=== PATIENT | female | born 1975 | race Caucasian/White ===

== ENCOUNTER → 2020-04-24 13:11 | Outpatient (CLI) | payer BC, SELFPAY ==
--- NOTE | ~2020-04-24 | MM_ITS ---
EXAMINATION: MM scrn lu implant BI w arielle HISTORY: Screening mammogram TECHNIQUE: Craniocaudal and mediolateral oblique 3-D tomosynthesis images with implant displacement a nd synthetic 2-D images were generated. Craniocaudal and mediolateral oblique views of the breasts wi thout implant displacement were obtained using full field digital mammography. CAD analysis was submi tted and interpreted. COMPARISON: 11/28/2017 bilateral diagnostic implant mammogram and complete right breast ultrasound 05/27/2015, 05/10/2014 bilateral implant digital screening mammogram examinations BREAST PARENCHYMAL COMPOSITION: The breasts are heterogeneously dense, which may obscure small masses . FINDINGS: Status post bilateral augmentation mammoplasty. There is no evidence of suspicious mass, ca lcification, or architectural distortion to suggest malignancy in either breast. There has been no queen spicious interval change. IMPRESSION: 1. No mammographic evidence of malignancy. 2. Recommend routine screening mammography in one year. BI-RADS Category 1: Negative Reviewed, dictated and finalized at location A.
== END ==
PROVIDERS: Referring Provider Nurse Practitioner Family; Visit Provider Obstetrics & Gynecology Gynecology
DX: Z12.31 Encounter for screening mammogram for malignant neoplasm of breast (principal)
CPT/HCPCS: 77063; 77067

== ENCOUNTER → 2020-11-17 12:08 | Outpatient (CLI) | payer BC, SELFPAY ==
--- NOTE | ~2020-11-17 | US_ITS ---
EXAMINATION: US transvaginal DATE: 11/17/2020 12:32 INDICATION: Right lower quadrant pain TECHNIQUE: Multiple endovaginal sonographic images of the pelvis were obtained. COMPARISON: 08/27/2019 FINDINGS: The uterus measures 8.7 x 4.8 x 4.9 cm. The endometrial complex measures 10 mm. The right o vary measures 2.1 x 1.7 x 1.7 cm. The left ovary measures 2.6 x 0.9 x 1.4 cm. There is normal vascula r flow in the ovaries. There is no free fluid in the pelvis. IMPRESSION: 1. No sonographic correlate for the patient's symptoms. Reviewed, dictated and finalized at location B.
== END ==
PROVIDERS: Visit Provider Nurse Practitioner
DX: R10.2 Pelvic and perineal pain (principal)
CPT/HCPCS: 76830

== ENCOUNTER → 2021-04-28 03:35 | Outpatient (CLI) | payer BC, SELFPAY ==
[2021-04-28 18:18] LABS: SARS-CoV-2 RNA PCR Negative
== END ==
PROVIDERS: Visit Provider Internal Medicine Gastroenterology
DX: Z01.812 Encounter for preprocedural laboratory examination (principal); Z20.822 Contact with and (suspected) exposure to COVID-19
CPT/HCPCS: C9803; U0003; U0005

== ENCOUNTER 2021-05-01 03:09 | Day surgery (SDC) | payer BC, SELFPAY ==
[2021-04-21 09:46] VITALS: BMI 21.2
[2021-05-01 11:45] VITALS: BP 120/74; PULSE 70; RESP 18; TEMP 35.8; O2SAT 100; BMI 20.5
[2021-05-01] MEDS: LACTATED RINGERS 1,000 ML 150 ML IV CONT (12:05)
--- NOTE | 2021-05-01 12:22 | P.PNAN_ITS ---
Anes - Initial Pre Proc Eval Procedure: Operation Date: 05/01/21 12:30 Proposed Procedures p Colonoscopy - Yariel Bryan MD Date/Time: 05/01/21 12:22 Surgeon: Yariel Bryan MD Pre Op Diagnosis: anemia Patient Data Age: 45 Gender: F Height: 1.65 m Weight: 56 kg Last Vital Signs Temp 96.4 F L 05/01/21 11:45 Pulse 70 05/01/21 11:45 Resp 18 05/01/21 11:45 BP 120/74 05/01/21 11:45 Pulse Ox 100 05/01/21 11:45 Allergies Allergy/AdvReac Type Severity Reaction Status Date / Time No Known Allergies Allergy Unverified 04/21/21 09:51 Patient hx anesthesia problems: none Family hx anesthesia problems: none Results Review: All pre-operative results and documents have been reviewed as part of the pre-operative evaluation. 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 Surgical History Surgical History (System 11/08/19 @ 13:37 by Klarissa Grier) No pertinent past surgical history Family History Family History (System 11/08/19 @ 13:37 by Klarissa Grier) Mother Family history of arthritis Social History Social History (System 11/08/19 @ 13:37 by Klarissa Grier) Smoking status: Never smoker Alcohol intake: current Drinks per week: 2 Alcohol use details: occasional Substance use: never Substance use type: does not use Living arrangements: with family Gender identity (if verbalized by the patient): Female Spiritual care concerns: No Anes - Eval Final PreProcedure Day of Procedure 05/01/21 12:22 Patient weight: normal Heart: regular rate and rhythm Lungs: clear to auscultation Airway: Mallampati scale class II Neurological: alert and oriented Last oral intake: >/= 8 hours ASA classification: II Emergent: no Anesthetic plan: proceed Anesthesia type and monitoring: general GIVS and standard monitoring Results Review: All pre-operative results and documents have been reviewed as part of the pre-operative evaluation. Informed Consent: The patient's anesthetic plan and its attendant risks and benefits were discussed with the patient/family/POA. Questions were solicited and answers provided to the satisfaction of the patient/family/POA.
--- NOTE | 2021-05-01 12:27 | PM.HPGS ---
History of Present Illness History of Present Illness Consent: Risks, benefits, and alternatives have been discussed and questions answered. Patient agrees to proceed with procedure. Chief complaint: anemia Narrative: Anjelica Anaya is a 45 year old female with anemia, hb 10 but no overt gib, never had colonoscopy. She also has heavy periods Review of Systems Constitutional: Constitutional: Denies headache(s) and Denies weakness Eyes: Eyes: Denies blurry vision ENT: Reports Normal hearing present, Denies headache(s) and Denies neck pain Cardiovascular: Cardiovascular: Denies chest pain and Denies dyspnea Respiratory: Respiratory: Denies dyspnea Gastrointestinal: Gastrointestinal: Reports no additional gastrointestinal complaints Genitourinary: Genitourinary: Denies dysuria Musculoskeletal: Musculoskeletal: Denies neck pain Integumentary/Breasts: Skin/Breast: Denies dry skin Neurologic: Reports Normal hearing present, Denies headache(s) and Denies weakness Psychiatric: Psychiatric: Denies anxiety Endocrine: Endocrine: Denies change in body appearance Hematologic/Lymphatic: Hematologic/Lymphatic: Denies easy bleeding Allergic/Immunologic: Allergic/Immunologic: Denies urticaria PMFSH Past Medical History Medical History (Updated 05/01/21 @ 12:28 by Yariel Bryan MD) Anemia Colon cancer screening 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 Surgical History Surgical History (System 11/08/19 @ 13:37 by Klarissa Grier) No pertinent past surgical history Family History Family History (System 11/08/19 @ 13:37 by Klarissa Grier) Mother Family history of arthritis Social History Social History (System 11/08/19 @ 13:37 by Klarissa Grier) Smoking status: Never smoker Alcohol intake: current Drinks per week: 2 Alcohol use details: occasional Substance use: never Substance use type: does not use Living arrangements: with family Gender identity (if verbalized by the patient): Female Spiritual care concerns: No Meds Home Medications and Allergies Allergies Allergy/AdvReac Type Severity Reaction Status Date / Time No Known Allergies Allergy Unverified 04/21/21 09:51 Vital Signs Vital Signs - 24 hr 05/01/21 11:45 Temperature 96.4 F L Pulse Rate 70 Respiratory Rate 18 Blood Pressure 120/74 Pulse Oximetry 100 Exam Const: General: comfortable and no acute distress HENMT: General nose exam: Normal nares present Eyes: General: appearance normal, both eyes and all related structures Neck: Neck: no JVD Resp: Auscultation: clear to auscultation bilaterally Cardio: Rate: regular rate Rhythm: regular rhythm GI: Inspection: non-distended GI Palp: Yes Soft to palpation Skin: General skin exam: normal color Neuro: General: gait normal Speech: normal speech Extrem: General: normal to inspection Psych: Mental Status: mental status grossly normal Assessment and Plan Assessment and plan (1) Anemia: Code(s): D64.9 - Anemia, unspecified Status: Acute (2) Colon cancer screening: Code(s): Z12.11 - Encounter for screening for malignant neoplasm of colon Status: Acute Assessment and Plan: colonoscopy
[2021-05-01 12:54] VITALS: BP 108/69; PULSE 67; RESP 16; O2SAT 100
[2021-05-01 13:04] VITALS: BP 93/56; PULSE 70; RESP 16; O2SAT 95
[2021-05-01 13:14] VITALS: BP 104/71; PULSE 61; RESP 16; O2SAT 95
== END 2021-05-01 13:50 | disposition home or self-care (01) ==
PROVIDERS: PCP Internal Medicine; Visit Provider Internal Medicine Gastroenterology
PROC: 0DJD8ZZ Inspection of Lower Intestinal Tract, Via Natural or Artificial Opening Endoscopic (ICD-10-PCS; CPT 45378; principal; 2021-05-01 12:30)
DX: Z12.11 Encounter for screening for malignant neoplasm of colon (principal); D64.9 Anemia, unspecified; G51.0 Bell's palsy; K64.8 Other hemorrhoids
CPT/HCPCS: 45378; C9803; J2704; J7120; U0003; U0005

== ENCOUNTER 2022-02-02 07:08 | Outpatient (CLI) | payer BC, SELFPAY ==
--- NOTE | ~2022-02-02 | MM_ITS ---
EXAMINATION: MM scrn lu implant BI w arielle HISTORY: Screening mammogram TECHNIQUE: Craniocaudal and mediolateral oblique 3-D tomosynthesis images with implant displacement a nd synthetic 2-D images were generated. Craniocaudal and mediolateral oblique views of the breasts wi thout implant displacement were obtained using full field digital mammography. CAD analysis was submi tted and interpreted. COMPARISON: Comparison to multiple prior studies sequentially, with oldest reviewed study dated 03/30. BREAST PARENCHYMAL COMPOSITION: The breasts are extremely dense, which lowers the sensitivity of mamm ography FINDINGS: There are bilateral subpectoral silicone implants. There are focal asymmetries in the upper inner quadrant of the left breast on implant displaced views, not definitely seen on prior studies. The right breast is stable without evidence for malignancy. IMPRESSION: 1. Left breast asymmetries. 2. Additional mammographic views and possible breast ultrasound are recommended. BI-RADS Category 0: Incomplete: Needs additional imaging evaluation. Reviewed, dictated and finalized at location A. IMPRESSION: 1. Left breast asymmetries. 2. Additional mammographic views and possible breast ultrasound are recommended . BI-RADS Category 0: Incomplete: Needs additional imaging evaluation.
== END 2022-02-02 07:09 | disposition home or self-care (01) ==
LOC: ANHIMG 07:10
PROVIDERS: PCP Internal Medicine; Visit Provider Nurse Practitioner
DX: Z12.31 Encounter for screening mammogram for malignant neoplasm of breast (principal); R92.8 Other abnormal and inconclusive findings on diagnostic imaging of breast
CPT/HCPCS: 77063; 77067

== ENCOUNTER → 2022-02-05 10:05 | Outpatient (CLI) | payer BC, SELFPAY ==
--- NOTE | ~2022-02-05 | XR_ITS ---
XR shoulder RT min 2V DATE: 02/05/2022 10:20 INDICATION: Right shoulder pain. No injury. TECHNIQUE: 4 views COMPARISON: None FINDINGS: There is moderately prominent right glenohumeral osteoarthritis including moderately promin ent spurring of the right humeral head. Normal alignment at the acromioclavicular and glenohumeral anamika ints. No fracture or dislocation, periosteal reaction or bone destruction. IMPRESSION: Moderate right glenohumeral osteoarthritis Reviewed, dictated and finalized at location A.
== END ==
PROVIDERS: PCP Family Medicine; Visit Provider Family Medicine
DX: M25.511 Pain in right shoulder (principal); M19.011 Primary osteoarthritis, right shoulder
CPT/HCPCS: 73030

== ENCOUNTER 2022-02-12 11:43 | Outpatient (CLI) | payer BC, SELFPAY ==
--- NOTE | ~2022-02-12 | MMUS_ITS ---
EXAMINATION: MM diag lu implant LT w arielle, US breast LT complete HISTORY: Follow-up left breast asymmetries TECHNIQUE: Additional 3-D tomosynthesis images of the left breast were performed and synthetic 2-D im ages were generated. CAD analysis was submitted and interpreted. High resolution complete left breast ultrasound was performed. COMPARISON: Comparison to multiple prior studies sequentially, with oldest reviewed study dated 03/30. BREAST PARENCHYMAL COMPOSITION: The breasts are heterogenously dense, which may obscure small masses. FINDINGS: MAMMOGRAPHIC FINDINGS: There are no suspicious discrete masses, calcifications or cyst architectural distortion in the left breast. Focal asymmetries are less dense with spot compression views, most likely superimposed fibrog landular content. ULTRASOUND: Limited left breast ultrasound: At 1:00, 9 cm from the nipple there is a 9 mm cyst. Left breast impla nt noted. No suspicious masses to suggest malignancy. There is normal. 5 mm lymph node in the axilla. IMPRESSION: 1. No evidence for malignancy in the left breast. Benign findings. 2. Routine yearly screening mammogram and regular clinical breast examination are recommended. BI-RADS Category 2: Benign finding(s). Reviewed, dictated and finalized at location A. IMPRESSION: 1. No evidence for malignancy in the left breast. Benign findings. 2. Routine yearly screening mammogram and regular clinical breast examination a re recommended. BI-RADS Category 2: Benign finding(s).
== END 2022-02-12 11:44 | disposition home or self-care (01) ==
LOC: ANHIMG 11:47
PROVIDERS: PCP Family Medicine; Visit Provider Obstetrics & Gynecology Gynecology
DX: R92.8 Other abnormal and inconclusive findings on diagnostic imaging of breast (principal)
CPT/HCPCS: 76641; 77061; 77065; G0279

== ENCOUNTER 2022-09-10 08:50 | Outpatient (CLI) | payer BC, SELFPAY ==
[2022-09-10 09:48] LABS: Hematocrit 41.2 % (37.0-47.0); Hemoglobin 13.9 g/dL (12.0-15.0)
== END 2022-09-10 08:51 | disposition home or self-care (01) ==
PROVIDERS: PCP Family Medicine; Visit Provider Obstetrics & Gynecology Gynecology
DX: N85.00 Endometrial hyperplasia, unspecified (principal)
CPT/HCPCS: 36415; 85014; 85018; 86850; 86900; 86901

== ENCOUNTER 2022-09-20 01:06 | Day surgery (SDC) | payer BC, SELFPAY ==
[2022-09-07 15:13] VITALS: BMI 21.6
--- NOTE | 2022-09-07 15:19 | PC.NURSE ---
Report to the Outpatient Waiting Room, entrance under the green pavilion located off [facility], at time 6:15 on date 09/20/22. Planned Procedure Time: 8:15. Time changes happen often and if your time is changed the preop area will call you the afternoon before. - You and your visitor will be asked to self-screen and do not enter if you have any COVID symptoms. - Only one visitor is requested with a max of two and NO children visitors are allowed at this time. - The patient visitor may be requested to leave or wait in car when not with patient due to distancing restrictions. - A mask is optional within the hospital at this time. Patients may have clear liquids (water, carbonated beverages, clear teas, apple juice) until 3 hours prior to surgery (5:15) with a maximum of 20 ounces. - No food from midnight until time of surgery Take the following medications with a SIP of water the morning of surgery: NONE DO NOT STOP ANY OF YOUR OTHER PRESCRIPTION MEDICATIONS PRIOR TO SURGERY EXCEPT THE FOLLOWING Medications to discontinue per physician: VITAMINS/SUPPLEMENTS Date to take last dose: 09/16/22 Please no make-up, nail armenian, hairspray, perfume, deodorant, or body powder the day of surgery. No jewelry (including any body piercings) or valuables the day of surgery, leave them at home. Please take a shower or bath the night before, or the morning of, surgery with an antibacterial soap. Wear comfortable, loose fitting clothing. - Jewelry must be removed prior to entering the operating room. Rings and piercings that are not removed may be cut off. - The hospital will not accept responsibility for valuables. - Please leave all valuables, including medications, at home the day of surgery. If you are going home after surgery, a licensed ready mix truck driver must drive you home. - NO public transportation without another adult if you receive anesthesia. - We recommend that an adult stay with you for 24 hours following discharge. - We also recommend that you do not drive, make important decision, drink alcoholic beverages, or take any drugs that were not prescribed by your health care provider for at least 24 hours after your discharge time. Follow any additional instructions given to you from your surgeon. If you or anyone in your household have experienced Covid symptoms in the past week, please notify your surgeon or the nurse liaison at the phone number below for possible testing. Telephone instructions given to PT - ÁNGEL POST and asked if any additional questions and then verbalized understanding. Patient advised to call surgeon office or pre surgery nurse liaison [phone] if any additional questions.
[2022-09-20] VITALS (9 sets, daily range): BP systolic 96–124; BP diastolic 57–75; PULSE 56–93; RESP 12–16; TEMP 36.3–37.1; O2SAT 98–100
[2022-09-20] MEDS: ACETAMINOPHEN 500 MG TABLET 1000 MG PO (06:55)
[2022-09-20] MEDS: LACTATED RINGERS 1,000 ML 30 ML IV CONT ×3 (07:00→10:58)
[2022-09-20] MEDS: KETOROLAC 15 MG/ML VIAL (*BKC) IV PUSH (07:05)
--- NOTE | 2022-09-20 07:25 | WPDHPUPDATE1 ---
History and Physical Update Update Date/Time: 09/20/22 07:25 History and Physical has been reviewed, including an updated exam of the patient. There are NO changes in the patient's condition. Risks, benefits, and alternatives have been discussed and questions answered. Patient agrees to proceed with procedure.
--- NOTE | 2022-09-20 07:25 | PM.HPGS ---
History of Present Illness History of Present Illness Consent: Risks, benefits, and alternatives have been discussed and questions answered. Patient agrees to proceed with procedure. Chief complaint: endometrial hyperplasia w/o atypia Narrative: Anjelica Anaya is a 47 year old female with simple hyperplasia without atypia the endometrium. Patient with simple hyperplasia without atypia diagnosed in January of 2022. Patient has been on Prometrium initially 200mg daily for days 1 to 12 of the cycle. Follow-up endometrial biopsy revealed the same pathology. Patient was given the option for hysterectomy but wanted to try an increased dose of medication 1st. Prometrium was increased [id number] daily days 1 to 12 cycle repeat biopsy revealed continued simple hyperplasia without atypia. It was recommended at that time to proceed with hysterectomy. Plan is to proceed with total vaginal hysterectomy possible bilateral salpingectomy. Risks of infection, bleeding, injury to internal organs (as especially bowel, bladder, ureters, and ovaries), and deep vein thrombosis were reviewed. Patient is aware this is under general anesthesia. The small possibility of converting to an open procedure was also reviewed. Patient voices understanding and agrees to proceed. Review of Systems Review of Systems: not repeated day of surgery; patient states no changes in status PMFSH Past Medical History Medical History (Updated 09/20/22 @ 07:30 by Angella Ortiz MD) Anemia 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 (normal spontaneous vaginal delivery) x2 Surgical History Surgical History (Updated 09/20/22 @ 07:29 by Angella Ortiz MD) H/O breast augmentation History of foot surgery bilateral History of hysteroscopy History of shoulder surgery Family History Family History Mother Family history of arthritis Social History Social History Smoking status: Never smoker Alcohol intake: current Drinks per week: 4 Alcohol use details: occasional Substance use: never Substance use type: does not use Living arrangements: with family Occupation/Education: unemployed Gender identity (if verbalized by the patient): Female Sexual Orientation (if Verbalized by the Patient): Straight or Heterosexual Spiritual care concerns: No Meds Home Medications and Allergies Home Medications Medication Instructions Recorded Confirmed Type cholecalciferol (vitamin D3) 125 125 mcg PO DAILY 09/07/22 09/20/22 History mcg (5,000 unit) tablet (Vitamin D3) multivitamin 1 tablet PO DAILY 09/07/22 09/20/22 History omega 7-iev-sll-fish oil 1,000 mg 1 cap PO DAILY 09/07/22 09/20/22 History (120 mg-180 mg) capsule (Fish Oil) progesterone micronized 100 mg 300 mg PO HS 09/07/22 09/20/22 History capsule vitamin B complex 1 tablet PO DAILY 09/07/22 09/20/22 History Allergies Allergy/AdvReac Type Severity Reaction Status Date / Time No Known Allergies Allergy Verified 09/20/22 07:19 Vital Signs Vital Signs - 24 hr 09/20/22 06:31 Temperature 98.7 F Pulse Rate 84 Respiratory Rate 16 Blood Pressure 120/64 Pulse Oximetry 100 Oxygen Delivery Room Air Exam Const: General: healthy appearing and alert Orientation/consciousness: patient oriented x3 Resp: Effort & Inspection: normal respiratory effort GI: GI Palp: Yes Soft to palpation, No Tenderness to palpation present (GI) and No Palpable mass present : External Female Exam: normal external appearance Speculum Exam - Vagina: normal appearance of the vagina and normal vaginal discharge Speculum Exam - Cervix: normal appearance of the cervix Bimanual exam- vagina & uterus: uterine size normal and consistency normal Bimanual Exam- Adnexa, other: normal adnexae and No adnexal tenderness Neuro: General: patient oriented x3 Asses
[2022-09-20] MEDS: SCOPOLAMINE 1.5 MG PATCH TRANSDERM (07:29)
--- NOTE | 2022-09-20 07:37 | P.PNAN_ITS ---
Anes - Initial Pre Proc Eval Procedure: Operation Date: 09/20/22 08:15 Proposed Procedures p Total Vaginal Hysterectomy with Bilateral Salpingectomy - Angella Ortiz MD Date/Time: 09/20/22 07:37 Surgeon: Angella Ortiz MD Pre Op Diagnosis: endometrial hyperplasia w/o atypia Patient Data Age: 47 Gender: F Height: 1.65 m Weight: 55.8 kg Last Vital Signs Temp 37.1 C 09/20/22 06:31 Pulse 84 09/20/22 06:31 Resp 16 09/20/22 06:31 BP 120/64 09/20/22 06:31 Pulse Ox 100 09/20/22 06:31 O2 Del Method Room Air 09/20/22 06:31 Allergies Allergy/AdvReac Type Severity Reaction Status Date / Time No Known Allergies Allergy Verified 09/20/22 07:19 Home Medications Medication Instructions Recorded Confirmed Type cholecalciferol (vitamin D3) 125 125 mcg PO DAILY 09/07/22 09/20/22 History mcg (5,000 unit) tablet (Vitamin D3) multivitamin 1 tablet PO DAILY 09/07/22 09/20/22 History omega 5-svv-nky-fish oil 1,000 mg 1 cap PO DAILY 09/07/22 09/20/22 History (120 mg-180 mg) capsule (Fish Oil) progesterone micronized 100 mg 300 mg PO HS 09/07/22 09/20/22 History capsule vitamin B complex 1 tablet PO DAILY 09/07/22 09/20/22 History Patient hx anesthesia problems: none Family hx anesthesia problems: none Results Review: All pre-operative results and documents have been reviewed as part of the pre- operative evaluation. [facility] Past Medical History Medical History Anemia 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 (normal spontaneous vaginal delivery) x2 Surgical History Surgical History H/O breast augmentation History of foot surgery bilateral History of hysteroscopy History of shoulder surgery Family History Family History Mother Family history of arthritis Social History Social History Smoking status: Never smoker Alcohol intake: current Drinks per week: 4 Alcohol use details: occasional Substance use: never Substance use type: does not use Living arrangements: with family Occupation/Education: unemployed Gender identity (if verbalized by the patient): Female Sexual Orientation (if Verbalized by the Patient): Straight or Heterosexual Spiritual care concerns: No Anes - Eval Final PreProcedure Day of Procedure 09/20/22 07:37 Patient weight: normal Heart: regular rate and rhythm Lungs: clear to auscultation Airway: Mallampati scale class II Neurological: alert and oriented Last oral intake: >/= 8 hours ASA classification: II Emergent: no Anesthetic plan: proceed Anesthesia type and monitoring: general ETT and standard monitoring Results Review: All pre-operative results and documents have been reviewed as part of the pre- operative evaluation. Informed Consent: The patient's anesthetic plan and its attendant risks and benefits were discussed with the patient/family/POA. Questions were solicited and answers provided to the satisfaction of the patient/family/POA.
[2022-09-20] MEDS: ceFAZolin 2 GM/D5W 50 ML 2 GM/50 ML BAG IVPB (08:24)
--- NOTE | 2022-09-20 09:08 | SUR.OPER ---
ARRIVES WITH RIGHT HAND SPLINT;HAND SLIGHTLY SWOLLEN, DOES NOT MOVE HAND DUE TO PAIN IT CAUSES IN MIDDLE OF HAND, DENIES NUMBNESS OR TINGLING,+ SENSATION TO ALL FINGERS AND HAND, RADIAL PULSE +3 PREOP ASSESSMENT. PREPOSITIONED FOR COMFORT.
--- NOTE | 2022-09-20 09:50 | P.OP_ITS ---
Procedure Note - Detailed Date of Procedure 09/20/22 Pre-op Diagnosis endometrial hyperplasia w/o atypia Post-op Diagnosis Same Procedure Performed Total vaginal hysterectomy with bilateral salpingectomy Surgeon Angella Ortiz MD Anesthesia General Findings normal-appearing tubes, uterus, and ovaries Description of Procedure The patient was taken to the operating room and placed under general anesthesia in the dorsal lithotomy position. She was prepped and draped in the usual sterile fashion. Short weighted speculum was placed posterior and the Anna retractors placed anterior. The cervix is grasped on the anterior lip with a tenaculum and injected with 2% lidocaine with epinephrine in a circumferential manner. The scalpel was used to incise this vaginal mucosa around the cervix. The vaginal mucosa was dissected anteriorly and posterior. The peritoneum was entered posteriorly and the long curved weighted speculum placed. I was initially unable to enter the peritoneum anteriorly. The cardinal and uterosacral ligaments are serially clamped, transected, and suture ligated with 0 Vicryl. All are tagged for future use. I was then able to enter the peritoneum anteriorly and the Anna retractor was replaced. The uterine vessels are clamped, transected, and suture ligated with 0 Vicryl. The posterior fundus is grasped with towel clamps and delivered through the cul-de-sac. The utero-ovarian ligaments are clamped, transected, and suture ligated with 0 Vicryl. The pedicles were tagged for future use. The right tube was grasped with a Franki, cross clamped with a Z clamp, excised, and suture ligated with 0 Vicryl. The identical procedure was performed on the left tube. There is a small arterial bleed noted at the right tubo-ovarian ligament that is grasped with a Z clamp and suture ligated with 0 Vicryl. There is also a small oozing vessel on the left ovary that has a ruptured corpus luteum cyst. This area is sutured with a 0 Vicryl stitch. Good hemostasis was then noted at all pedicles. The tags on the utero-ovarian ligaments are removed. The peritoneum was grasped anteriorly with a Peon and the long weighted speculum removed. The short weighted speculum was replaced and the posterior peritoneum was grasped with a Peon. The peritoneum was closed using 0 Ethibond in a pursestring suture. All tags were cut out. The vaginal cuff was closed using 0 Vicryl in a running locked fashion. All instruments are removed. The vaginal packing coated with Premarin cream was placed. Sponge, needle, and instrument counts are correct per the OR staff. The patient is awakened from anesthesia an d taken to recovery in stable condition. Estimated Blood Loss 175 Drains Yes ( Francis catheter) Packing Yes ( vaginal) Pathology Yes ( uterus and tubes) Complications No immediate complications Condition Stable Disposition PACU
--- NOTE | 2022-09-20 09:58 | PM.DS ---
DS: Admitting Diagnosis Discharge Date 09/21/22 Admitting Diagnosis simple hyperplasia of the endometrium without atypia DS: Discharge Diagnosis Discharge Diagnosis (1) Hx of total vaginal hysterectomy: Code(s): Z90.710 - Acquired absence of both cervix and uterus Status: Acute Assessment and Plan: total vaginal hysterectomy and bilateral salpingectomy DS: Summary Hospital Course Hospital Course: At the time of discharge, the patient is waiting, ambulating, and tolerating a regular diet. Status at Discharge Functional status at discharge: independent ambulation Overall status at discharge: patient is progressing back to baseline Time Spent with Patient Time attestation: Total time spent providing and/or coordinating discharge services: DS: Data Data Completed and Pending Pending studies at discharge: Pending at discharge 09/20/22 09:28 Surgical [PTH] Routine Discharge Plan Discharge Patient Disposition: Home, Self-Care Discharge Instructions: Remove the Scopolamine patch that was placed behind your ear in 72 hours or less. Wash your hands after touching. Pelvic rest x 6 wks No driving x 2 wks No heavy lifting x 6 wks Stand Alone Forms: General Discharge Instructions Follow-up/Referrals: Angella Ortiz MD [Physician] - 1 Week Discharge Medications: New hydrocodone-acetaminophen 5-325 mg tablet 1 tablet PO Q4H PRN (Reason: pain) Qty: 10 0RF Continued multivitamin Tablet 1 tablet PO DAILY vitamin B complex Tablet Extended Release 1 tablet PO DAILY cholecalciferol (vitamin D3) [Vitamin D3] 125 mcg (5,000 unit) Tablet 125 mcg PO DAILY omega 8-gjv-sal-fish oil [Fish Oil] 1,000 mg (120 mg-180 mg) Capsule 1 cap PO DAILY Discontinued progesterone micronized 100 mg capsule 300 mg PO HS
[2022-09-20] MEDS: fentaNYL CITRATE INJ (*CRX) 100 MCG/2 ML VIAL 25 MCG IV PUSH ×8 (10:12→11:03)
[2022-09-20] MEDS: LIDO 2%/EPINEPHRINE 1:100,000 50 ML VIAL 10 ML INFILTRATE (10:14)
[2022-09-20] MEDS: ONDANSETRON INJ 4 MG/2 ML VIAL IV PUSH (10:31)
[2022-09-20] MEDS: DEXTROSE 5%/LACTATED RINGERS 1,000 ML 125 ML IV CONT (11:35)
[2022-09-20] MEDS: KETOROLAC 30 MG/ML VIAL (*BKC) IV PUSH ×2 (11:38→17:30)
--- NOTE | 2022-09-20 13:30 | PC.NURSE ---
Pt. states she feels a lot of pressure and the need to void, reassured her that she has a ventura in and that her bladder is draining. She feels slightly distended and urine output is only 60cc's for 2 hours. She would like her ventura removed if possible, I tried to reposition the catheter and had the patient stand at the bedside to increase output but it did not work. I called Dr. Ortiz and she said to remove the vaginal packing and monitor urine output. 1315- I removed vaginal packing and the patient states that felt better but she still is in pain. 1330- Bladder scanned the patient and results were 0 after 3 scans. Tried repositioning ventura again and there is no return. Pt. states the pain is more in her urethra than her bladder. I told the patient to try and relax with the heating pad and I will bring her pain meds and we will continue to monitor her urine output.
[2022-09-20] MEDS: HYDROcodone/acetaminophen (*CRX) 5-325 MG TABLET 1 TAB PO ×3 (13:41→23:34)
[2022-09-20] MEDS: SIMETHICONE 80 MG TAB.CHEW PO (17:35)
[2022-09-20] MEDS: IBUPROFEN 600 MG TABLET PO (23:33)
[2022-09-21 00:30] VITALS: BP 88/55; PULSE 64; RESP 16; TEMP 37; O2SAT 100
[2022-09-21 04:53] LABS: Basophils Percent Auto 0.1 % (0.2-1.2); Eosinophils Percent Auto 0.4 % (0-4.4); Hematocrit 28.8 % (37.0-47.0); Hemoglobin 9.8 g/dL (12.0-15.0); Immature Granulocyte Absolute 0.03 K/mm3 (0.00-0.031); Immature Granulocyte Percent A 0.4 % (0-0.5); Lymphocytes Absolute Auto 1.02 K/mm3 (0.9-3.2); Lymphocytes Percent Auto 13.8 % (18.3-44.2); Mean Corpuscular Volume 85.2 fl (80-100); Mean Platelet Volume 10.3 fl (7.4-10.4); Monocytes Absolute Auto 0.5 K/mm3 (0.1-0.6); Monocytes Percent Auto 7.2 % (2.6-8.5); Neutrophils Absolute Auto 5.8 K/mm3 (1.3-6.7); Neutrophils Percent Auto 78.1 % (45.5-73.1); Platelet Count Result 205 k/mm3 (150-375); Red Blood Count 3.38 M/mm3 (4.2-5.4); Red Cell Distribution Width 14.4 % (11.5-14.5); White Blood Count 7.4 K/mm3 (4.5-10.0)
[2022-09-21 05:15] VITALS: BP 90/54; PULSE 66; RESP 16; TEMP 36.6; O2SAT 96
[2022-09-21 07:45] VITALS: BP 99/48; PULSE 63; RESP 16; TEMP 36.6; O2SAT 100
--- NOTE | 2022-09-21 07:46 | PM.GYNPNOP ---
COOKEE - A/P Postoperative Procedures: Procedures Operation Date: 09/20/22 08:15 Actual Procedure Side Surgeon p Total Vaginal Hysterectomy with Bilateral Salpingectomy Bilateral Angella Ortiz MD Postoperative day: 1 Postoperative status: doing well Postoperative plan: routine post-op care and discharge Time Spent With Patient Time: Total time spent is greater than 50% in coordination of care (as documented) at patient's floor/unit and/or counseling patient: Time with patient: less than 15 minutes COOKEE- PN:Subj Post-Op Subjective Date/time seen: 09/21/22 07:46 Subjective: patient has no complaints, pain is well controlled (minimal pain meds) and patient reports nausea Exam Narrative: abdomen soft, nt, nd COOKEE - PN: Obj Data Vital Signs Vital Signs: Vital Signs - 24 hr 09/20/22 10:05 09/20/22 10:20 09/20/22 10:50 Temperature 97.7 F Pulse Rate 89 69 70 Respiratory Rate 12 12 12 Blood Pressure 124/75 104/64 100/66 Pulse Oximetry 100 100 100 Oxygen Delivery Simple Face Mask Simple Face Mask Room Air Oxygen Flow Rate 6 6 09/20/22 10:35 09/20/22 11:05 09/20/22 11:20 Temperature 97.3 F L Pulse Rate 56 L 64 71 Respiratory Rate 12 12 16 Blood Pressure 109/63 103/59 L 107/66 Pulse Oximetry 100 100 100 Oxygen Delivery Room Air Room Air Oxygen Flow Rate 09/20/22 11:20 09/20/22 17:35 09/20/22 19:44 Temperature 97.4 F L 98.3 F Pulse Rate 56 L 93 Respiratory Rate 16 16 Blood Pressure 111/68 96/57 L Pulse Oximetry 100 98 Oxygen Delivery Room Air Oxygen Flow Rate 09/21/22 00:30 09/21/22 05:15 Temperature 98.6 F 97.9 F Pulse Rate 64 66 Respiratory Rate 16 16 Blood Pressure 88/55 L 90/54 L Pulse Oximetry 100 96 Oxygen Delivery Oxygen Flow Rate Intake/Output Intake/Output: Intake & Output 09/18/22 09/19/22 09/20/22 09/21/22 23:59 23:59 23:59 23:59 Intake Total 1750 Output Total 1890 Balance -140 Meds/Results Medications: Active Medications Generic Name Dose Route Start Last Admin Trade Name Freq PRN Reason Stop Dose Admin Hydrocodone Bitart/Acetaminophen 1 tab 09/20/22 11:11 09/20/22 23:34 Hydrocodone/Acetaminophen (*Crx) 5-325 Mg Tablet PO 1 tab Q3H PRN Administration Pain Rated 5 or Less Hydrocodone Bitart/Acetaminophen 1 tab 09/20/22 11:11 Hydrocodone/Acetaminophen (*Crx) 10-325 Mg Tablet PO Q3H PRN Pain Rated 6 or Greater Dextrose/Lactated Ringer's 1,000 mls @ 125 mls/hr 09/20/22 11:11 09/21/22 06:37 Dextrose 5%/Lactated Ringers IV CONT Not Given .Q8H PATY Ibuprofen 600 mg 09/20/22 11:11 09/20/22 23:33 Ibuprofen 600 Mg Tablet PO 600 mg Q6H PRN Administration Cramping Ketorolac Tromethamine 30 mg 09/20/22 11:11 09/20/22 17:30 Ketorolac 30 Mg/Ml Vial (*Bkc) IV PUSH 09/25/22 11:10 30 mg Q6H PRN Administration Pain Rated 4-6 Naloxone HCl 0.1 mg 09/20/22 11:11 Naloxone Hcl 0.4 Mg/Ml Vial IV PUSH Q2M PRN Respiratory rate less than 10 Ondansetron HCl 4 mg 09/20/22 11:11 Ondansetron Inj 4 Mg/2 Ml Vial IV PUSH Q6H PRN Nausea And Vomiting Simethicone 80 mg 09/20/22 11:11 09/20/22 17:35 Simethicone 80 Mg Tab.Chew PO 80 mg Q2H PRN Administration Gas Labs 09/21/22 04:15 Labs: Laboratory Results - last 24 hr 09/21/22 04:15 WBC 7.4 RBC 3.38 L Hgb 9.8 L D Hct 28.8 L MCV 85.2 MCH 29.0 MCHC 34.0 RDW 14.4 Plt Count 205 MPV 10.3 Immature Gran % (Auto) 0.4 Neut % (Auto) 78.1 H Lymph % (Auto) 13.8 L [place] % (Auto) 7.2 Eos % (Auto) 0.4 Baso % (Auto) 0.1 L Lymph # (Auto) 1.02 [place] # (Auto) 0.5 Eos # (Auto) 0.0 Baso # (Auto) 0.0 Abs Immat Gran (auto) 0.03 Absolute Neuts (auto) 5.8 Absolute Nucleated RBC 0.0 Nucleated RBC % 0.0
[2022-09-21] MEDS: IBUPROFEN 600 MG TABLET PO (10:06)
[2022-09-21] MEDS: HYDROcodone/acetaminophen (*CRX) 5-325 MG TABLET 1 TAB PO (10:06)
== END 2022-09-21 10:20 | disposition home or self-care (01) ==
LOC: ANHSURGERY 07:30 → ANHOB2 11:12
PROVIDERS: PCP Family Medicine; Visit Provider Obstetrics & Gynecology Gynecology
PROC: (CPT 58260; principal; 2022-09-20 08:15)
DX: N85.01 Benign endometrial hyperplasia (principal)
CPT/HCPCS: 58262; 36415; 85025; 88307; 99199; A9270; J0690; J1100; J1170; J1885; J2250; J2405; J2704; J2710; J3010; J7030; J7120; J7121

== ENCOUNTER 2023-06-27 13:34 | Outpatient (CLI) | payer BC, SELFPAY ==
--- NOTE | ~2023-06-27 | MR_ITS ---
EXAMINATION: MR shoulder RT w con DATE: 06/27/2023 16:17 INDICATION: Biceps tendinitis at the right shoulder TECHNIQUE: Magnetic resonance imaging (MRI) of the right shoulder was performed following intra-nayely cular gadolinium contrast injection and without intravenous contrast. Details of the glenohumeral louie nt injection have been dictated separately. Sequences included axial T2-weighted FS FSE, axial T1-we ighted FS FSE, coronal oblique T1-weighted FS FSE, coronal oblique T2-weighted FSE, sagittal T2-weigh martin FS FSE, sagittal T1-weighted FSE, and ABER (abduction external rotation) T1-weighted FS FSE. COMPARISON: None. FINDINGS: Coracoacromial arch: The acromion undersurface is curved in morphology (type II). The coracoacromial ligament is normal. Acromioclavicular joint is normal. Rotator cuff: Mild/moderate supraspinatus and mild tendinopathy of the anterior portion of infraspinatus and caudal portion of the subscapularis tendons. There is a likely very small undersurface tear along the dista l supraspinatus tendon seen on ABER series 14, image 12 with intrasubstance contrast extending approx imately 3 cm medially from the greater tuberosity footplate. No measurable homogeneously contrast oc led tear defect appreciated. Teres minor tendon is normal. Nonspecific mild muscular edema medial jagjit e of the teres minor muscle belly without associated fatty atrophy. Remaining musculature of the rota tor cuff/shoulder girdle is unremarkable. Biceps tendon, glenoid labrum and glenohumeral cartilage: Long head of the biceps tendon is intact. There is a shallow tear at the chondral labral junction at the 9:30-10:00 position of the posterior glenoid labrum. This is slightly deeper cleft between the ba se of the superior glenoid labrum which consistent with a normal sublabral sulcus although the labrum at this location demonstrates amorphous intrasubstance increased signal and frayed margins on the AB ER imaging consistent with labral degeneration. There is partial thickness chondral ulceration involv ing up to 50% the cartilage thickness with chondral surface regularity at the inferomedial aspect of the humeral head along which surrounds a small marginal osteophyte. There is deep chondral fissuring without degenerative subchondral changes extending from the superomedial aspect of the humeral head l aterally across the apex of the humeral head to the superolateral margin of the articular surface. Gl enoid cartilage appears relatively preserved. Bones and other: Cystlike changes and surrounding edema-like signal change underlying the superior facet footplate of the greater tuberosity likely related to the supraspinatus tendinopathy and tear. Marrow signal is ot herwise normal. No fracture or pathologic marrow replacing process. There is mild synovitis is seen i n the recesses of the contrast-filled glenohumeral joint space. No loose osteochondral bodies. There is a small amount of fluid without contrast enhancement in the subacromial/subdeltoid bursitis consis tent with mild bursitis. IMPRESSION: 1. Moderate supraspinatus tendinopathy with a very small articular sided tear near the superior facet insertion as evidenced by internal septations especially small amount of contrast along with associa martin small longitudinal split tear. 2. Mild glenohumeral osteoarthritis with extensive moderate grade chondral malacia along the humeral head, small shallow tear at the chondral labral junction of the posterior glenoid labrum and more rachel rphous degenerative tearing of the posterosuperior glenoid labrum. 3. Mild subacromial/subdeltoid bursitis. 4. Normal biceps tendon. Reviewed, dictated and finalized at location A. OWER DEVELOPMENT MANAGER IMPRESSION: 1. Moderate supraspinatus tendinopathy with a very small articular sided tear n e
--- NOTE | ~2023-06-27 | XR_ITS ---
EXAMINATION: XR fl inj shoulder RT - MR/CT DATE: 06/27/2023 15:53 INDICATION: Right shoulder bicipital tendinitis TECHNIQUE: A time-out was performed to verify the patient's name, date of , and procedure to b e performed. The procedure including the risks, benefits, and alternatives was discussed with the pat ient. Risks discussed included bleeding and infection. The patient understood the risks and agreed to proceed. The skin overlying the rotator cuff interval of the right glenohumeral joint was prepped a nd draped in usual sterile fashion. Anesthetic was administered with 1% lidocaine subcutaneously. A 22 G needle was advanced under fluoroscopic guidance into the joint. Injection of 1 mL of Omnipaque 240 confirmed intra-articular position of the needle. Subsequently, injectate consisting of 12 mL o f 2:1:1 mixture of sterile saline:Omnipaque 240:1% lidocaine mixed 200:1 with 529 mg/mL Multihance ga dolinium contrast was injected with intra-articular administration confirmed with intermittent fluoro scopy. The needle was removed and the entry site was cleaned and dressed. There were no immediate co mplications. Fluoroscopy exposure time was 2.1 minutes. The total number of images was 142. Total DAP was 0.413 Gycm^2 FINDINGS: Real-time fluoroscopy demonstrates the needle and injected contrast in the right glenohumer al joint. Small marginal ossified some mild nonuniform joint space narrowing at the right glenohumera l joint consistent with mild osteoarthritis. Acromioclavicular joint is normal. IMPRESSION: 1. Accessible right glenohumeral joint injection of a dilute gadolinium contrast mixture for subseque nt MRI arthrogram which will be dictated separately. Reviewed, dictated and finalized at location A. NCE VICE PRESIDENT IMPRESSION: 1. Accessible right glenohumeral joint injection of a dilute gadolinium contras t mixture for subsequent MRI arthrogram which will be dictated separately.
== END 2023-06-27 13:35 | disposition home or self-care (01) ==
PROVIDERS: PCP Family Medicine; Visit Provider Physician Assistant
DX: M75.21 Bicipital tendinitis, right shoulder (principal); M19.011 Primary osteoarthritis, right shoulder
CPT/HCPCS: 23350; 73222; 77002; A9577; Q9966

== ENCOUNTER → 2023-08-19 13:01 | Outpatient (CLI) | payer BC, SELFPAY ==
--- NOTE | ~2023-08-19 | XR_ITS ---
XR lumbar spine min 4V DATE: 08/19/2023 13:20 INDICATION: Worsening left low back pain TECHNIQUE: AP, lateral, bilateral oblique views, coned lateral lumbosacral view COMPARISON: None FINDINGS: Slight lumbar levoscoliosis. No fracture or bone destruction, spondylolysis or spondylolist hesis. The included lower thoracic and lumbar pedicles are intact. Lumbar and lumbosacral interspaces are well preserved. The sacroiliac joints are intact. IMPRESSION: Slight lumbar levoscoliosis. Reviewed, dictated and finalized at location B. ATRIC NURSE
== END ==
PROVIDERS: PCP Family Medicine; Visit Provider Family Medicine
DX: M54.50 Low back pain, unspecified (principal)
CPT/HCPCS: 72110

== ENCOUNTER → 2023-09-12 09:16 | Outpatient (REF) | payer BC, SELFPAY | LOC: ANHLAB 09:16 | PROVIDERS: PCP Family Medicine; Visit Provider Plastic Surgery | DX: R22.2 Localized swelling, mass and lump, trunk (principal) | CPT/HCPCS: 88304 ==

== ENCOUNTER 2023-09-28 09:00 | Outpatient (RCR) | payer BC, SELFPAY ==
--- NOTE | 2023-08-30 07:54 | PCPTNOTE ---
Patient called & cancelled scheduled appointment this date due to inclement weather. She has been rescheduled.
--- NOTE | 2023-08-31 13:31 | OPREHPOC ---
Outpatient Therapy Plan of Care This is a Multidisciplinary Plan of Care that may contain components documented by all disciplines (PT, OT, and ST.) PT Problem 1 PT Problem #1 Knowledge Deficit PT Goal 1 Goal Pt to be IND with issued HEP Target Visit 4 PT Problem 2 PT Problem #2 Pain PT Goal 1 Goal Pt to report back pain no greater than 3/10 in the last week. Target Visit 4 PT Goal 2 Goal Pt to report 75% improvement in overall symptoms. Target Visit 4 PT Problem 3 PT Problem #3 Pain PT Goal 1 Goal Pt to be able to ambulate on sand for 1 hour without an increase in pain. Target Visit 4 PT Goal 2 Goal Pt to report no increase in L sided back pain after riding for 1 hour. Target Visit 4
--- NOTE | 2023-08-31 13:31 | PTOPEVAL1 ---
Assessment and note entered by Jayleen Cheng, PT, DPT Evaluation Information Assessment Status Evaluation Diagnosis low back pain Subjective Information Pt states 30 years ago she fell and broke her sacrum and a TP of her lumbar spine. 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 In the last 2 years she was very inactive d/t having chronic anemia and ended up getting a total hysterectomy last years. She reports lots a weakness d/t chronic limited activity. She notices an increase in pain any time walking in sand without relief, prolonged standing. She can walk for any distance of time on steady ground . She also reports 2 tears in her R shoulder. Reported Pain Level Pain Score 3: Self Report Assessment PT Clinical Summary Anjelica presents to therapy today for her initial evaluation with a diagnosis of low back pain. Today she demonstrates pelvic alignment asymmetries, decreased core strength, and generalized hypermobility all likely contributing to her pain reports. Skilled therapy services are indicated to address the deficits noted above, to manage pain, to improve stability, and to return to PLOF without limitations. Oswestry: 19/50, 38% disability Plan of Care Interventions Electrical Stimulation,Gait Training,Hot Pack/Cold Pack,Intermittent Compression,Manual Therapy, Neuro Re-education,Patient/Caregiver Educati, Therapeutic Activities,Therapeutic Exercise PT Services Indicated Yes Treatment Frequency and 1x/wk for 4 wks Duration These treatments will address the objective and functional deficits as defined above. The patient will be advanced safely and appropriately in order for the patient to progress towards his/her prior level of function. Additional exercises will be introduced and as well as a comprehensive home exercise program upon discharge, if needed, ?to ensure carryover of functional gains achieved in the clinic. This treatment plan has been reviewed and agreement upon by the patient.
--- NOTE | 2023-09-28 10:22 | PTOPPROG ---
Assessment and note entered by Jayleen Cheng, PT, DPT Evaluation Information Assessment Status Progress Diagnosis low back pain Subjective Information Pt states she has learned how to move her body to where she does not have pain. She states she is sore and a little irritated after she does her exercises for a couple of hours. Assessment PT Clinical Summary Anjelica presents to therapy today for her progress report following 5 visits of skilled therapy to treat her diagnosis of low back pain. Today she continues to demonstrates pelvic alignment asymmetries, but with improving core strength and body mechanics. Pt would like continue her with HEP on her own and plans to follow up if needed. Plan of Care Interventions Electrical Stimulation,Gait Training,Hot Pack/Cold Pack,Intermittent Compression,Manual Therapy, Neuro Re-education,Patient/Caregiver Educati, Therapeutic Activities,Therapeutic Exercise PT Services Indicated Yes Treatment Frequency and follow up if needed Duration These treatments will address the objective and functional deficits as defined above. The patient will be advanced safely and appropriately in order for the patient to progress towards his/her prior level of function. Additional exercises will be introduced and as well as a comprehensive home exercise program upon discharge, if needed, ?to ensure carryover of functional gains achieved in the clinic. This treatment plan has been reviewed and agreement upon by the patient.
--- NOTE | 2023-10-31 08:30 | PTOPDC ---
Assessment and note entered by Jayleen Cheng, PT, DPT Evaluation Information Assessment Status Discharge - Pt Not Present Diagnosis low back pain Subjective Information Per pt, she was going well at her last appointment on 09/28/23. She stated she would follow up with the clinic if she has any new pains arise. Have not heard from her at this time. Assessment PT Clinical Summary Pt completed 5 visits of skilled therapy from 08/31 to 09/28/23. She will be discharged at this time per POC.
== END 2023-10-31 09:42 | disposition home or self-care (01) ==
LOC: ANHGOSHPT 09:00
PROVIDERS: PCP Family Medicine; Visit Provider Family Medicine
DX: M54.50 Low back pain, unspecified (principal)
CPT/HCPCS: 97110; 97112; 97161; 97530; 97550; 97551

== ENCOUNTER 2024-02-02 14:23 | Outpatient (CLI) | payer BC, SELFPAY ==
--- NOTE | ~2024-02-02 | MR_ITS ---
EXAMINATION: MR lumbar spine wo con DATE: 02/02/2024 15:03 INDICATION: Low back pain, unspecified. TECHNIQUE: Magnetic resonance imaging (MRI) of the lumbar spine was performed without intravenous con trast. Sequences included sagittal T2-weighted FSE, sagittal T2-weighted FS FSE, sagittal T1-weighted FSE, and axial T2-weighted FSE. COMPARISON: Lumbar spine radiographs 08/19/2023 FINDINGS: There is 7 degrees levocurvature of lumbar spine. Vertebral body heights are normal. Interv ertebral disc heights are normal. The distal spinal cord signal intensity is normal. The conus medull lalitha is at L1. The following disc levels are specifically discussed: L1-L2: The disc does not extend beyond the endplate margin. There is mild bilateral facet joint osteo arthritis. There is no neural foraminal stenosis. There is no central canal stenosis. L2-L3: The disc does not extend beyond the endplate margin. There is mild bilateral facet joint osteo arthritis. There is no neural foraminal stenosis. There is no central canal stenosis. L3-L4: The disc is bulging. There is moderate bilateral facet joint osteoarthritis. There is mild lluvia ateral neural foraminal stenosis. There is mild central canal stenosis. L4-L5: The disc is bulging. There is severe bilateral facet joint osteoarthritis. There is mild bilat eral neural foraminal stenosis. There is no central canal stenosis. L5-S1: There is a central protrusion with annular fissure. There is mild bilateral facet joint osteoa rthritis. There is no neural foraminal stenosis. There is mild central canal stenosis. IMPRESSION: 1. Mild lumbar spondylosis. Reviewed, dictated and finalized at location A. IMPRESSION: 1. Mild lumbar spondylosis.
== END 2024-02-02 14:24 ==
LOC: GOSHIMG 14:24
PROVIDERS: PCP Family Medicine; Visit Provider Family Medicine
DX: M47.896 Other spondylosis, lumbar region (principal)
CPT/HCPCS: 72148